=== PATIENT | male | born 1985 | race Two or more races ===

== ENCOUNTER 2024-11-24 17:16 | Emergency (ER) | payer OTHER ==
[~2024-11-24] VITALS: Ht 180.3 cm; Wt 96.9 kg
[2024-11-24 17:45] VITALS: BP 144/82; PULSE 92; RESP 17; O2SAT 99
[2024-11-24] MEDS: LIDOCAINE 1% HCL (LOCAL ANESTH.) INJ 20ML MDV ID ONE (19:20)
[2024-11-24] MEDS ORDERED: AUG875T PO (20:08)
--- NOTE | 2024-11-24 20:08 | ED.PDOC ---
HPI Comments Patient presents to the ED with a laceration on the left hand.Patient states he was attempting to put a hatchet away when the plastic sheath meant to secure the hatchet gave way, causing the hatchet to cut his finger. Patient arrived with an maritza wrap o the left hand. The laceration is noted but appears to have controlled bleeding. Patient rates pain as 6/10.Denies numbness and weakness. Chief Complaint: Laceration Time Seen by MD: 18:21 Reviewed Notes: Nurses Notes, Medications, Allergies Home Meds Active Scripts Ibuprofen (Ibuprofen) 800 Mg Tab, 1 TAB PO TID PRN for 5 Days, #15 TAB Prov:ZULAYBENJAMIN FRENCH CORD BINDER 11/24/24 Amoxicillin & Pot Clavulanate (AUGMENTIN TABLET) 875 Mg Tb, 875 MG PO BID for 7 Days, #14 TAB Prov:BENJAMIN BISWAS FRENCH CORD BINDER 11/24/24 Information Source: Patient Mode of Arrival: Ambulatory Complexity: Intermediate Laceration Length (cm): 2 Past Medical History PAST MEDICAL HISTORY: Denies Surgical History: Denies all surgeries Family History Family History: Reviewed,noncontributory to illness Social History Smoker: Non-Smoker Alcohol: Denies ETOH Use Drugs: Denies Drug Use Constitutional: denies: chills, diaphoresis, fatigue, fever, malaise, sweats, weakness, others EENTM: denies: blurred vision, double vision, ear bleeding, ear discharge, ear drainage, ear pain, ear ringing, eye pain, eye redness, hearing loss, mouth pain, mouth swelling, nasal discharge, nose bleeding, nose congestion, nose pain, photophobia, tearing, throat pain, throat swelling, voice changes, others Respiratory: denies: cough, hemoptysis, orthopnea, SOB at rest, shortness of breath, SOB with excertion, stridor, wheezing, others Cardiovascular: denies: chest pain, dizzy spells, diaphoresis, Dyspnea on exertion, edema, irregular heart beat, left arm pain, lightheadedness, palpitations, PND, syncope, others Gastrointestinal: denies: abdomen distended, abdominal pain, blood streaked bowels, constipated, diarrhea, dysphagia, difficulty swallowing, hematemesis, melena, nausea, poor appetite, poor fluid intake, rectal bleeding, rectal pain, vomiting, others Genitourinary: denies: burning, dysuria, flank pain, frequency, hematuria, incontinence, penile discharge, penile sore, pain, testicle pain, testicle swelling, urgency, others Neurological: denies: dizziness, fainting, headache, left sided numbness, left sided weakness, numbness, paresthesia, pre-existing deficit, right sided nu mbness, right sided weakness, seizure, speech problems, tingling, tremors, weakness, others Musculoskeletal: denies: back pain, gout, joint pain, joint swelling, muscle pain, muscle stiffness, neck pain, others Integumetry: reports: laceration (left indes finger); denies: bruises, change in color, change in hair/nails, dryness, lesions, lumps, rash, wounds, others Allergic/Immunocompromised: denies: Difficulty Healing, Frequent Infections, Hives, Itching, others Hematologic/Lymphatic: denies: anemia, blood clots, easy bleeding, easy bruising, swollen glands, others Endocrine: denies: excessive hunger, excessive sweating, excessive thirst, excessive urination, flushing, intolerance to cold, intolerance to heat, unexplained weight gain, unexplained weight loss, others Psychiatric: denies: anxiety, bipolar disorder, depression, hopeless, panic disorder, schizophrenia, sleepless, suicidal, others Physical Exam General Appearance: No Apparent Distress, Normal HEENT: Pharynx Normal Neck: Full Range of Motion, Non-Tender Respiratory: Lungs Clear, No Respiratory Distress, Normal Breath Sounds Cardiovascular: No Murmur, Normal Peripheral Pulses, Regular Rate/Rhythm Breast Exam: Deferred Gastrointestinal: Non Tender, Soft Genitalia: Deferred Pelvic: Deferred Rectal: Deferred Extremities: Normal capillary refill, Normal inspection, Normal range of motion, Non-tender, No pedal edema Musculoskeletal : Apperance: Normal Neurologic: Alert, road cutter II-XII nml as Tested, No Motor Deficits, Normal Affect, Normal Mood, No Sensory Deficits Cerebellar Function: Normal Reflexes: Normal Skin: Dry, Lacerations (2.5 cm las to left proximal infex finger full thickness, no fb noted, bleeding controlled + csm ), Normal Color, Warm Lymphatic: No Adenopathy Was a procedure done? Was a procedure done?: Yes Sedation Sedation?: No Laceration Repair : Location left index finger Length 2.5 cm Anesthetic: Lidocaine, Without epi Laceration Repair Prep: Saline, Betadine Laceration Repair Wound Comple: epidermis/dermis repair Laceration Repair: Number of sutures (8), Simple Informed consent obtained: Yes Risks, benefits, and alternati: Yes Notes Patient tolerated rated well minimal blood loss Differential diagnosis Generic Laceration: Retained Foriegn Body, Neurovascular Injury, Tendon Injury, Avulsion, Amputation X-Ray, Labs, Meds, VS Vital Signs Date Time Temp Pulse Resp B/P (MAP) Pulse Ox O2 Delivery O2 Flow Rate FiO2 11/24/24 17:45 98.8 92 17 144/82 (102) 99 X-Ray, Labs, Meds, VS Comment See procedure note laceration repair. Advised patient to follow up in 5-7 days for suture removal. Lactic Augmentin sent along with ibuprofen 800 mg t.i.d. p.r.n. for pain finger dressed and placed in splint. ER return precautions given advised to follow up with PCP as necessary patient agrees with discharge plan of care. Time of 1ST Reevaluation: 20:06 Reevaluation 1ST: Improved Patient Education/Counseling: Diagnosis, Treatment, Prognosis, Need For Follow Up Family Education/Counseling: No Family Present Departure 1 Departure Time of Disposition: 20:06 Impression: Primary Impression: Laceration of finger of left hand Qualified Codes: S61.211A - Laceration without foreign body of left index finger without damage to nail, initial encounter Disposition: HOME / SELF CARE / HOMELESS Condition: Stable e-Prescriptions Ibuprofen (Ibuprofen) 800 Mg Tab 1 TAB PO TID PRN for 5 Days, #15 TAB Prov: BENJAMIN BISWAS 11/24/24 Amoxicillin & Pot Clavulanate (AUGMENTIN TABLET) 875 Mg Tb 875 MG PO BID for 7 Days, #14 TAB Prov: BENJAMIN BISWAS 11/24/24 Discharged With: Self Critical Care Note Critical Care Time?: No Stability Stability form required: BENJAMIN Kwong Nov 24, 2024 20:08
[2024-11-24] MEDS ORDERED: IBUP-1456 PO (20:09)
== END 2024-11-24 20:18 | disposition home or self-care (01) ==
LOC: ER 17:16
DX: S61.211A Laceration without foreign body of left index finger without damage to nail, initial encounter (principal); W45.8XXA Other foreign body or object entering through skin, initial encounter; Y93.89 Activity, other specified; Y92.89 Other specified places as the place of occurrence of the external cause; Y99.8 Other external cause status
CPT/HCPCS: 12001; 99283; J2003